=== PATIENT | male | born 1985 | race Caucasian/White ===

== ENCOUNTER 2018-01-05 11:15 | Emergency (ER) | payer OTHER ==
[2018-01-05 11:20] VITALS: RESP 18
[2018-01-05] MEDS ORDERED: SODIUM CHLORIDE 0.9% 500 ML 500 ML IV STA (11:40)
--- NOTE | 2018-01-05 11:47 | ED ---
General Adult HPI - General Chief complaint: Abdominal Pain Stated complaint: Abd pain Time Seen by Provider: 01/05/18 11:15 Source: patient, RN notes reviewed Mode of arrival: ambulatory Limitations: no limitations - History of Present Illness Initial comments: This is a 32-year-old male who presents emergency Department complaining of epigastric abdominal pain. Patient states it started yesterday morning has been intermittent since. Patient states he has about a 2 hour episode of abdominal pain and then resolved. Patient states so sharp in nature that he is doubled over when it occurs. Patient denies any radiation of the pain. Patient denies any nausea vomiting. Patient denies any diarrhea per patient denies any recent fever chills or cough. Patient denies any previous abdominal surgeries. Patient denies any similar symptoms prior to yesterday morning. Patient states at about 9:00 this morning he had a 2 hour episode which made him leave work on the way home he hit a pole because the pain was so bad per patient states currently he is pain-free. - Related Data Home Medications Medication Instructions Recorded Confirmed No Known Home Medications 01/05/18 01/05/18 Allergies Allergy/AdvReac Type Severity Reaction Status Date / Time Penicillins Allergy Rash/Hives Verified 01/05/18 11:47 Review of Systems ROS Statement: Those systems with pertinent positive or pertinent negative responses have been documented in the HPI. ROS Other: All systems not noted in ROS Statement are negative. Past Medical History Past Medical History: No Reported History History of Any Multi-Drug Resistant Organisms: None Reported Past Surgical History: Hernia Repair Past Psychological History: No Psychological Hx Reported Smoking Status: Never smoker Past Alcohol Use History: Occasional Past Drug Use History: None Reported General Exam - General Exam Comments Initial Comments: GENERAL: Patient is well-developed and well-nourished. Patient is nontoxic and well- hydrated and is in no acute distress. ENT: Neck is soft and supple. No significant lymphadenopathy is noted. Oropharynx is clear. Moist mucous membranes. Neck has full range of motion without eliciting any pain. EYES: The sclera were anicteric and conjunctiva were pink and moist. Extraocular movements were intact and pupils were equal round and reactive to light. Eyelids were unremarkable. PULMONARY: Unlabored respirations. Good breath sounds bilaterally. No audible rales rhonchi or wheezing was noted. CARDIOVASCULAR: There is a regular rate and rhythm without any murmurs gallops or rubs. ABDOMEN: Soft and nontender with normal bowel sounds. No palpable organomegaly was noted. There is no palpable pulsatile mass. SKIN: Skin is clear with no lesions or rashes and otherwise unremarkable. NEUROLOGIC: Patient is alert and oriented x3. Cranial nerves II through XII are grossly intact. Motor and sensory are also intact. Normal speech, volume and content. Symmetrical smile. MUSCULOSKELETAL: Normal extremities with adequate strength and full range of motion. No lower extremity swelling or edema. No calf tenderness. LYMPHATICS: No significant lymphadenopathy is noted PSYCHIATRIC: Normal psychiatric evaluation. Limitations: no limitations Course Vital Signs 01/05/18 01/05/18 11:17 12:30 Temperature 97.5 F L Pulse Rate 79 81 Respiratory 18 18 Rate Blood Pressure 129/80 121/71 O2 Sat by Pulse 99 96 Oximetry Medical Decision Making - Medical Decision Making KUB shows no acute abnormalities. Ultrasound gallbladder shows no acute normalities. I went into reevaluate the patient patient has had no pain while in the emergency department. Patient will follow-up the primary medical care doctor. - Lab Data Result diagrams: 01/05/18 11:39 01/05/18 11:39 Lab Results 01/05/18 01/05/18 Range/Units 11:39 11:39 WBC 6.7 (3.8-10.6) k/uL RBC 5.52 (4.30-5.90) m/uL Hgb 17.0 (13.0-17.5) gm/dL Hct 48.3 (39.0-53.0) % MCV 87.6 (80.0-100.0) fL MCH 30.9 (25.0-35.0) pg MCHC 35.2 (31.0-37.0) g/dL RDW 12.7 (11.5-15.5) % Plt Count 181 (150-450) k/uL Neutrophils % 64 % Lymphocytes % 29 % Monocytes % 5 % Eosinophils % 1 % Basophils % 0 % Neutrophils # 4.3 (1.3-7.7) k/uL Lymphocytes # 1.9 (1.0-4.8) k/uL Monocytes # 0.3 (0-1.0) k/uL Eosinophils # 0.1 (0-0.7) k/uL Basophils # 0.0 (0-0.2) k/uL Sodium 139 (137-145) mmol/L Potassium 4.3 (3.5-5.1) mmol/L Chloride 105 (98-107) mmol/L Carbon Dioxide 25 (22-30) mmol/L Anion Gap 9 mmol/L BUN 16 (9-20) mg/dL Creatinine 0.71 (0.66-1.25) mg/dL Est GFR (CKD-EPI)AfAm >90 (>60 ml/min/1.73 sqM) Est GFR (CKD-EPI)NonAf >90 (>60 ml/min/1.73 sqM) Glucose 116 H (74-99) mg/dL Calcium 10.1 (8.4-10.2) mg/dL Total Bilirubin 0.6 (0.2-1.3) mg/dL AST 25 (17-59) U/L ALT 32 (21-72) U/L Alkaline Phosphatase 65 (38-126) U/L Total Protein 6.9 (6.3-8.2) g/dL Albumin 4.3 (3.5-5.0) g/dL Amylase 63 (30-110) U/L Lipase 73 (23-300) U/L Disposition Clinical Impression: Abdominal pain Disposition: HOME SELF-CARE Instructions: Abdominal Pain (ED) Is patient prescribed a controlled substance at d/c from ED?: No Referrals: Jeane Orr MD [Primary Care Provider] - 1-2 days Time of Disposition: 13:32
[2018-01-05 11:59] LABS: Basophils % (A) 0 %; Eosinophils # (A) 0.1 k/uL (0-0.7); Eosinophils % (A) 1 %; HCT 48.3 % (39.0-53.0); Lymphocytes # (A) 1.9 k/uL (1.0-4.8); Lymphocytes % (A) 29 %; MCH 30.9 pg (25.0-35.0); MCHC 35.2 g/dL (31.0-37.0); MCV 87.6 fL (80.0-100.0); Mean Platelet Volume 7.5; Monocytes # (A) 0.3 k/uL (0-1.0); Monocytes % (A) 5 %; Neutrophils # (A) 4.3 k/uL (1.3-7.7); Neutrophils % (A) 64 %; Platelet Count 181 k/uL (150-450); RBC 5.52 m/uL (4.30-5.90); RDW 12.7 % (11.5-15.5); WBC 6.7 k/uL (3.8-10.6)
[2018-01-05 12:09] LABS: ALT 32 U/L (21-72); AST 25 U/L (17-59); Albumin 4.3 g/dL (3.5-5.0); Alkaline Phosphatase 65 U/L (38-126); Amylase 63 U/L (30-110); Anion Gap 9 mmol/L; Blood Urea Nitrogen 16 mg/dL (9-20); Calcium 10.1 mg/dL (8.4-10.2); Carbon Dioxide 25 mmol/L (22-30); Chloride 105 mmol/L (98-107); Glucose 116 mg/dL (74-99); Lipase 73 U/L (23-300); Potassium 4.3 mmol/L (3.5-5.1); Sodium 139 mmol/L (137-145); Total Bilirubin 0.6 mg/dL (0.2-1.3); Total Protein 6.9 g/dL (6.3-8.2)
--- NOTE | 2018-01-05 12:53 | XR ---
EXAMINATION TYPE: XR KUB DATE OF EXAM: 01/05/2018 CLINICAL DATA: 32-year-old male with abdominal pain, [facility] COMPARISON: None FINDINGS: Lung bases are clear. No evidence for free intraperitoneal air. No dilated small bowel or air-fluid levels. Scattered air and stool seen throughout the colon extendi ng distally into the rectum. Mild stool in the right side of the abdomen. No suspicious calcifications identified. IMPRESSION: No evidence of bowel obstruction or free intraperitoneal air.
--- NOTE | 2018-01-05 13:26 | US ---
EXAMINATION TYPE: US gallbladder DATE OF EXAM: 01/05/2018 COMPARISON: NONE CLINICAL HISTORY: Pain. abd pain x 1 day, patient ate 4 hrs prior EXAM MEASUREMENTS: Liver Length: 16.0 cm Gallbladder Wall: 0.3 cm CBD: not seen Right Kidney: 12.0 x 4.7 x 5.0 cm *extensive bowel gas limits exam, patient ate 4hrs prior Pancreas: limited views appear wnl Liver: intercostal views appear wnl Gallbladder: internal debris within and wall was borderline, maybe slightly contracted but no obviou s stone seen. Evidence for sonographic Espitia's sign: no CBD: unable to assess due to bowel gas obscuring window even after rolling patient Right Kidney: wnl IMPRESSION: 1. Ultrasound abdomen is visualized appears within normal limits. 2. Minimal debris within partially contracted gallbladder is not entirely excluded.
[2018-01-05 13:59] VITALS: BP 118/79; PULSE 79; TEMP 97.3
== END 2018-01-05 13:50 | disposition home or self-care (01) ==
LOC: EC 11:15
DX: R10.13 Epigastric pain (principal); Z88.0 Allergy status to penicillin
CPT/HCPCS: 36415; 74018; 76705; 80053; 82150; 83690; 85025; 96360; 96361; 99284

== ENCOUNTER → 2018-01-12 | Outpatient (CLI) | payer OTHER | END | disposition home or self-care (01) | LOC: LABWHC1 16:36 | PROVIDERS: ATTEND Internal Medicine | DX: R10.9 Unspecified abdominal pain (principal) | CPT/HCPCS: 36415; 86677 ==

== ENCOUNTER 2021-01-12 15:07 | Emergency (ER) | payer BC, OTHER ==
[2021-01-12 16:26] VITALS: TEMP 97.9
--- NOTE | 2021-01-12 16:29 | ED ---
General Adult HPI - General Source: patient, family, RN notes reviewed Mode of arrival: wheelchair Limitations: no limitations <Rc Gonzalez - Last Filed: 01/12/21 16:27> - General Source: patient, RN notes reviewed, old records reviewed <Sb Barrett - Last Filed: 01/12/21 20:05> - General Chief complaint: Extremity Injury, Lower Stated complaint: lt ankle injury - History of Present Illness Initial comments: 35-year-old male presents to the emergency room for a chief complaint of left ankle pain. Patient was getting out of his truck when he stepped in a hole and ankle rolled. He has a leather boot on and is unable to get it off. Denies any foot pain.Patient has no other complaints at this time including shortness of breath, chest pain, abdominal pain, nausea or vomiting, headache, or visual changes. (Rc Gonzalez) Patient is a 35-year-old male with no significant past medical history presents emergency Department after a fall. He stepped off his truck elbow with dizziness: Rolled his ankle. He was wearing leather boot and was having difficulty removing it. He has not and laboratory afterwards secondary to left ankle pain. Denies any other injuries or hitting his head. Denies any chest pain, abdominal pain, nausea, vomiting. States he is having severe pain over the left side of his ankle. He had difficulty walking with it. His no other acute complaints at this time. I evaluated the patient when he was placed in a room. (Sb Barrett) - Related Data Home Medications Medication Instructions Recorded Confirmed No Known Home Medications 01/05/18 01/05/18 Allergies Allergy/AdvReac Type Severity Reaction Status Date / Time Penicillins Allergy Rash/Hives Verified 01/12/21 16:26 Review of Systems ROS Other: All systems not noted in ROS Statement are negative. <Rc Gonzalez - Last Filed: 01/12/21 16:27> ROS Other: All systems not noted in ROS Statement are negative. <Sb Barrett - Last Filed: 01/12/21 20:05> ROS Statement: Those systems with pertinent positive or pertinent negative responses have been documented in the HPI. Review of Systems: CONST: Denies fever EYES: Denies blurry vision ENT: Denies nasal congestion C/V: Denies Chest pain RESP: Denies shortness of breath GI: Denies abdominal pain : Denies dysuria SKIN: Denies rash. MSK: Endorses left ankle pain. NEURO: Denies headache (Sb Barrett) Past Medical History Past Medical History: No Reported History History of Any Multi-Drug Resistant Organisms: None Reported Past Surgical History: Hernia Repair Past Psychological History: No Psychological Hx Reported Smoking Status: Never smoker Past Alcohol Use History: Occasional Past Drug Use History: None Reported <Rc Gonzalez - Last Filed: 01/12/21 16:27> General Exam Limitations: no limitations General appearance: alert, in no apparent distress Head exam: Present: atraumatic Eye exam: Present: normal appearance, PERRL, EOMI. Absent: scleral icterus, conjunctival injection ENT exam: Present: normal exam, mucous membranes moist Respiratory exam: Absent: respiratory distress Extremities exam: Present: other (Patient has on leather boot. Unable to remove secondary to pain) <Rc Gonzalez - Last Filed: 01/12/21 16:27> <Sb Barrett - Last Filed: 01/12/21 20:05> - General Exam Comments Initial Comments: General: Appears in mild distress secondary to left ankle pain. HEAD: Normal with no signs of head trauma. EYES: EOMI ENT: Hearing grossly intact RESPIRATORY: No increased work of breathing C/V: Regular rate and rhythm. Peripheral pulses are 2+ and intact throughout. Good capillary refill over the left toes. ABD: Abdomen is nondistended. EXT: Tenderness to palpation over the lateral malleolus of the left ankle. This radiates down into the left lateral foot. No tenderness to palpation over the foot. Intact peripheral pulses and sensation. Reduced range of motion secondary to pain over the lateral malleolus. SKIN: No rashes or lesions observed on exposed skin. NEURO: Alert and oriented 4. No focal sensory strength deficits. (Sb Barrett) Course Vital Signs 01/12/21 16:22 Temperature 97.9 F Pulse Rate 88 Respiratory 18 Rate Blood Pressure 136/86 O2 Sat by Pulse 99 Oximetry Medical Decision Making <Sb Barrett - Last Filed: 01/12/21 20:05> - Medical Decision Making Result patient's presentation and physical exam, I'm concerned for left ankle injury. X-ray was already obtained while the patient remained in triage. It was negative for acute fracture or subluxation, however was obtained with the patient's cowboy boot on and I believe that this did effectively of the image. We will repeat the x-ray and both my and the patient's request. He will be administered [place] as well as ibuprofen for pain management. He was in agreement this plan. Repeat x-ray revealed no acute fractures luxation. There was soft tissue swelling. I discussed results accepted the patient. He is likely experiencing a left ankle sprain. We discussed rest, ice, elevation. I'll provide follow-up information for orthopedic surgery. Patient will receive Daniel bandage as well as crutches here in the department. Patient was in agreement this plan. I instructed the patient to follow up with their PCP in the next 3 days. I provided contact information for follow up with Dr. Cuba orthopedic surgery. I explained that the patient should return to the emergency department if they experience any worsening symptoms. Strict return precautions were discussed with the patient. The patient expressed understanding of these instructions. I answered all questions that the patient had. The patient was discharged home in fair condition with their prescriptions and follow up information. (Sb Mchugh) Disposition <Rc Gonzalez - Last Filed: 01/12/21 16:27> Is patient prescribed a controlled substance at d/c from ED?: No <Sb Barrett - Last Filed: 01/12/21 20:05> Clinical Impression: Left ankle sprain Disposition: HOME SELF-CARE Condition: Fair Instructions (If sedation given, give patient instructions): Ankle Sprain (ED) Referrals: Jeane Orr MD [Primary Care Provider] - 1-2 days Norma Cuba DO [Doctor of Osteopathic Medicine] - 1-2 days
--- NOTE | 2021-01-12 16:43 | XR ---
EXAMINATION TYPE: XR ankle complete LT DATE OF EXAM: 01/12/2021 COMPARISON: NONE HISTORY: Ankle pain TECHNIQUE: 3 views FINDINGS: Ankle mortise is anatomic. I see no fracture nor dislocation. Joint spaces are fairly john l. There is soft tissue swelling over the lateral malleolus. IMPRESSION: Soft tissue swelling. No fracture.
[2021-01-12] MEDS ORDERED: IBUPROFEN 600 MG TAB PO STA (18:46)
--- NOTE | 2021-01-12 19:43 | XR ---
EXAMINATION TYPE: XR ankle complete LT DATE OF EXAM: 01/12/2021 COMPARISON: Today HISTORY: Pain TECHNIQUE: 3 views FINDINGS: Ankle mortise is anatomic. There is some soft tissue swelling around the ankle. I see no fr acture. Subtalar joint is intact. There is small plantar calcaneal spur. IMPRESSION: Soft tissue swelling. No fracture. No change.
[2021-01-12] MEDS ORDERED: HYDROcodone/APAP 5-325MG 1 EACH TAB PO STA (19:56)
[2021-01-12 20:29] VITALS: BP 143/100; PULSE 80; RESP 16
== END 2021-01-12 21:35 | disposition home or self-care (01) ==
LOC: EC 15:07
DX: S93.402A Sprain of unspecified ligament of left ankle, initial encounter (principal); Z88.0 Allergy status to penicillin; W18.42XA Slipping, tripping and stumbling without falling due to stepping into hole or opening, initial encounter
CPT/HCPCS: 99284

== ENCOUNTER 2021-08-30 13:42 | Emergency (ER) | payer BC ==
[2021-08-30 13:48] VITALS: TEMP 98.6
[2021-08-30] MEDS ORDERED: methylPREDNISolone SOD SUCCI 125 MG/2 ML VIAL IM ONE (14:18)
[2021-08-30] MEDS ORDERED: FAMOTIDINE 20 MG TAB PO STA (14:18)
--- NOTE | 2021-08-30 14:57 | ED ---
General Adult HPI - General Chief complaint: Skin/Abscess/Foreign Body Stated complaint: Bee Sting/EPI used Time Seen by Provider: 08/30/21 14:11 Source: patient Mode of arrival: ambulatory Limitations: no limitations - History of Present Illness Initial comments: Patient is a 36-year-old male who presents for allergic reaction to bee sting. 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 Patient states he was stung 3 times approximately 1:30 PM, two stings on the left hand and one sting on the right. Patient immediately used his EpiPen. Patient also took 2 Benadryl. Patient states he feels well now he is just worried he will have a reaction. He denies rash, throat swelling or irritation and trouble breathing. - Related Data Previous Rx's Medication Instructions Recorded EPINEPHrine (Auto Inject) [Epipen] 0.3 mg IM ONCE PRN #3 each 08/30/21 predniSONE 50 mg PO DAILY #5 tab 08/30/21 Allergies Allergy/AdvReac Type Severity Reaction Status Date / Time bee venom protein (honey bee) Allergy Unknown Verified 08/30/21 13:48 Penicillins Allergy Rash/Hives Verified 01/12/21 16:26 Review of Systems ROS Statement: Those systems with pertinent positive or pertinent negative responses have been documented in the HPI. ROS Other: All systems not noted in ROS Statement are negative. Past Medical History Past Medical History: No Reported History History of Any Multi-Drug Resistant Organisms: None Reported Past Surgical History: Hernia Repair Past Psychological History: No Psychological Hx Reported Smoking Status: Never smoker Past Alcohol Use History: Occasional Past Drug Use History: None Reported General Exam Limitations: no limitations General appearance: alert, in no apparent distress Head exam: Present: atraumatic, normocephalic, normal inspection Eye exam: Present: normal appearance, PERRL, EOMI. Absent: scleral icterus, conjunctival injection, periorbital swelling Neck exam: Present: normal inspection. Absent: tenderness, meningismus, lymphadenopathy Respiratory exam: Present: normal lung sounds bilaterally. Absent: respiratory distress, wheezes, rales, rhonchi, stridor Cardiovascular Exam: Present: regular rate, normal rhythm, normal heart sounds. Absent: systolic murmur, diastolic murmur, rubs, gallop, clicks Neurological exam: Present: alert, oriented X3, CN II-XII intact Psychiatric exam: Present: normal affect, normal mood Skin exam: Present: warm, dry, intact, normal color. Absent: rash Course Vital Signs 08/30/21 08/30/21 13:46 15:59 Temperature 98.6 F Pulse Rate 74 80 Respiratory 14 18 Rate Blood Pressure 135/90 122/75 O2 Sat by Pulse 98 98 Oximetry Medical Decision Making - Medical Decision Making This is a 36-year-old male who presents for evaluation of bee stings. Thorough history and examination were performed. Patient is well-appearing. Vital stable. He is not experiencing those swelling or difficulty breathing. There are no signs of respiratory distress or wheezing. Patient already uses EpiPen and took Benadryl. I will give him Solu-Medrol and Pepcid. Medication given. Patient observed in the emergency department for 2 and half hours. His vitals remained stable and patient continued to feel well. Patient will be discharged with strict return parameters. I will send him home with prednisone and more EpiPen's. Patient to follow-up with his primary care provider. He verbalizes understanding and is agreeable to this plan. Dr. Davidson is my attending. Disposition Clinical Impression: Bee sting allergy, Bee sting Disposition: HOME SELF-CARE Condition: Good Instructions (If sedation given, give patient instructions): Anaphylaxis (ED) Additional Instructions: Take medication as directed. You may also take Benadryl for any rash or itching. Follow-up with primary care provider in one to 2 days. Return to the emergency department experience new, concerning, or worsening symptoms. Prescriptions: EPINEPHrine (Auto Inject) [Epipen] 0.3 mg IM ONCE PRN #3 each PRN Reason: Anaphylaxis predniSONE 50 mg PO DAILY #5 tab Is patient prescribed a controlled substance at d/c from ED?: No Referrals: Jeane Orr MD [Primary Care Provider] - 1-2 days Time of Disposition: 16:03
[2021-08-30 16:01] VITALS: BP 122/75; PULSE 80; RESP 18
== END 2021-08-30 16:48 | disposition home or self-care (01) ==
LOC: EC 13:42
DX: T78.49XA Other allergy, initial encounter (principal); Z91.030 Bee allergy status; Z88.0 Allergy status to penicillin
CPT/HCPCS: 99282; J2930

== ENCOUNTER 2021-12-05 08:48 | Emergency (ER) | payer BC ==
[2021-12-05] MEDS ORDERED: DEXAMETHASONE SOD PHOSPHATE 10 MG/ML 1 ML VIAL IVP STA (10:35)
[2021-12-05] MEDS ORDERED: KETOROLAC 15 MG/ML 1 ML VIAL IVP STA (10:35)
--- NOTE | 2021-12-05 10:40 | ED ---
Weakness HPI - General Chief complaint: Neuro Symptoms/Deficit Stated complaint: lt sided facial numbness Time Seen by Provider: 12/05/21 10:27 Source: patient, RN notes reviewed Mode of arrival: ambulatory Limitations: no limitations - History of Present Illness Initial comments: This is a 36-year-old male who presents to the emergency department for left arm weakness and left-sided facial numbness. States that for the last 2-3 weeks, he has had weakness in the left arm, and states that he is having difficulty lifting objects. Earlier today, he experienced numbness in the left side of his face, and felt like it was drooping when he was looking in the mirror. When he went to work, his coworkers instructed him to come to the emergency department for evaluation. Denies any chest pain or shortness of breath. He has no history of cardiac or neurological issues. He has been seeing a chiropractor for the last several weeks due to pain in the right lower back and right leg. This is been attributed to his sciatic nerve. He has not had any treatment other than seeing the chiropractor. Denies any fevers, chills, sore throat, cough, dyspnea, chest pain, palpitations, abdominal pain, nausea, vomiting, diarrhea, or headaches. MD Complaint: numbness Location: LUE, face - Related Data Previous Rx's Medication Instructions Recorded EPINEPHrine (Auto Inject) [Epipen] 0.3 mg IM ONCE PRN #3 each 08/30/21 predniSONE 50 mg PO DAILY 5 Days #5 tab 12/05/21 Allergies Allergy/AdvReac Type Severity Reaction Status Date / Time bee venom protein (honey bee) Allergy Anaphylaxis Verified 12/05/21 11:53 Penicillins Allergy Swelling Verified 12/05/21 11:53 all over Review of Systems ROS Statement: Those systems with pertinent positive or pertinent negative responses have been documented in the HPI. ROS Other: All systems not noted in ROS Statement are negative. Past Medical History Past Medical History: No Reported History History of Any Multi-Drug Resistant Organisms: None Reported Past Surgical History: Hernia Repair Past Psychological History: No Psychological Hx Reported Smoking Status: Never smoker Past Alcohol Use History: Occasional Past Drug Use History: None Reported General Exam Limitations: no limitations General appearance: alert, in no apparent distress Head exam: Present: atraumatic, normocephalic, normal inspection Eye exam: Present: normal appearance, PERRL, EOMI. Absent: scleral icterus, conjunctival injection, periorbital swelling ENT exam: Present: normal exam, mucous membranes moist, TM's normal bilaterally, normal external ear exam Neck exam: Present: normal inspection. Absent: tenderness, meningismus, lymphadenopathy Respiratory exam: Present: normal lung sounds bilaterally. Absent: respiratory distress, wheezes, rales, rhonchi, stridor Cardiovascular Exam: Present: regular rate, normal rhythm, normal heart sounds. Absent: systolic murmur, diastolic murmur, rubs, gallop, clicks Extremities exam: Present: other (Full range of motion of the upper extremities bilaterally. Grain Combine Driver strength is 5 out of 5 bilaterally. 2+ radial pulses bi laterally.) Neurological exam: Present: alert, oriented X3, CN II-XII intact Psychiatric exam: Present: normal affect, normal mood Skin exam: Present: warm, dry, intact, normal color. Absent: rash Course Vital Signs 12/05/21 12/05/21 12/05/21 08:50 11:18 12:51 Temperature 97.9 F 98.8 F Pulse Rate 71 56 L 78 Respiratory 20 16 18 Rate Blood Pressure 149/90 131/85 130/77 O2 Sat by Pulse 97 98 98 Oximetry EKG Findings - EKG Comments: EKG Findings:: Sinus rhythm. Normal axis. Ventricular rate 66 bpm, PA interval 152 ms, QRS duration 86 ms, QTC 383 ms. Medical Decision Making - Medical Decision Making This is a 36-year-old male who presents to the emergency department for left sided numbness and right leg pain. He has no focal deficits on physical examination. Lab work obtained which was nonactionable. X-ray of the left arm, lumbar spine, and right femur were obtained. These revealed no acute findings, however it did identify degenerative changes in the lumbar spine. Computed tomography scan of the brain was obtained as well due to the patient's symptoms, revealing no acute intracranial abnormalities. Advised the patient that at this time his workup is not revealing a cause for his symptoms. It is very possible that he is experiencing a sciatica. He was given a dose of Decadron in the emergency department and a 5 day course of prednisone was provided to treat the possible sciatica. Advised he discussed physical therapy with his primary care provider and additional workup as necessary. Return precautions reviewed in depth, the patient is instructed to return to the emergency department with any new, worsening, or concerning symptoms. Patient verbalized understanding. This case was discussed in detail with the attending ED physician. Presentation, findings, and treatment plan discussed in detail as well. - Lab Data Result diagrams: 12/05/21 10:40 12/05/21 10:40 Lab Results 12/05/21 12/05/21 12/05/21 Range/Units 10:40 10:40 10:40 WBC 7.3 (3.8-10.6) k/uL RBC 5.62 (4.30-5.90) m/uL Hgb 17.3 (13.0-17.5) gm/dL Hct 49.4 (39.0-53.0) % MCV 88.0 (80.0-100.0) fL MCH 30.8 (25.0-35.0) pg MCHC 35.0 (31.0-37.0) g/dL RDW 12.7 (11.5-15.5) % Plt Count 196 (150-450) k/uL MPV 9.3 Neutrophils % 63 % Lymphocytes % 28 % Monocytes % 6 % Eosinophils % 1 % Basophils % 1 % Neutrophils # 4.6 (1.3-7.7) k/uL Lymphocytes # 2.1 (1.0-4.8) k/uL Monocytes # 0.4 (0-1.0) k/uL Eosinophils # 0.1 (0-0.7) k/uL Basophils # 0.1 (0-0.2) k/uL PT 10.3 (9.0-12.0) sec INR 0.9 (<1.2) APTT 26.9 (22.0-30.0) sec Sodium (137-145) mmol/L Potassium (3.5-5.1) mmol/L Chloride (98-107) mmol/L Carbon Dioxide (22-30) mmol/L Anion Gap mmol/L BUN (9-20) mg/dL Creatinine (0.66-1.25) mg/dL Est GFR (CKD-EPI)AfAm (>60 ml/min/1.73 sqM) Est GFR (CKD-EPI)NonAf (>60 ml/min/1.73 sqM) Glucose (74-99) mg/dL Calcium (8.4-10.2) mg/dL Total Bilirubin (0.2-1.3) mg/dL AST (17-59) U/L ALT (4-49) U/L Alkaline Phosphatase (38-126) U/L Troponin I (0.000-0.034) ng/mL Total Protein (6.3-8.2) g/dL Albumin (3.5-5.0) g/dL Urine Color Colorless Urine Appearance Clear (Clear) Urine pH 7.0 (5.0-8.0) Ur Specific Welch 1.005 (1.001-1.035) Urine Protein Negative (Negative) Urine Glucose (UA) Negative (Negative) Urine Ketones Negative (Negative) Urine Blood Negative (Negative) Urine Nitrite Negative (Negative) Urine Bilirubin Negative (Negative) Urine Urobilinogen <2.0 (<2.0) mg/dL Ur Leukocyte Esterase Negative (Negative) Urine Opiates Screen Not Detected (NotDetected) Ur Oxycodone Screen Not Detected (NotDetected) Urine Methadone Screen Not Detected (NotDetected) Ur Propoxyphene Screen Not Detected (NotDetected) Ur Barbiturates Screen Not Detected (NotDetected) U Tricyclic Antidepress Not Detected (NotDetected) Ur Phencyclidine Scrn Not Detected (NotDetected) Ur Amphetamines Screen Not Detected (NotDetected) U Methamphetamines Scrn Not Detected (NotDetected) U Benzodiazepines Scrn Not Detected (NotDetected) Urine Cocaine Screen Not Detected (NotDetected) U Marijuana (THC) Screen Not Detected (NotDetected) 12/05/21 12/05/21 Range/Units 10:40 10:40 WBC (3.8-10.6) k/uL RBC (4.30-5.90) m/uL Hgb (13.0-17.5) gm/dL Hct (39.0-53.0) % MCV (80.0-100.0) fL MCH (25.0-35.0) pg MCHC (31.0-37.0) g/dL RDW (11.5-15.5) % Plt Count (150-450) k/uL MPV Neutrophils % % Lymphocytes % % Monocytes % % Eosinophils % % Basophils % % Neutrophils # (1.3-7.7) k/uL Lymphocytes # (1.0-4.8) k/uL Monocytes # (0-1.0) k/uL Eosinophils # (0-0.7) k/uL Basophils # (0-0.2) k/uL PT (9.0-12.0) sec INR (<1.2) APTT (22.0-30.0) sec Sodium 137 (137-145) mmol/L Potassium 4.8 (3.5-5.1) mmol/L Chloride 102 (98-107) mmol/L Carbon Dioxide 21 L (22-30) mmol/L Anion Gap 14 mmol/L BUN 13 (9-20) mg/dL Creatinine 0.71 (0.66-1.25) mg/dL Est GFR (CKD-EPI)AfAm >90 (>60 ml/min/1.73 sqM) Est GFR (CKD-EPI)NonAf >90 (>60 ml/min/1.73 sqM) Glucose 86 (74-99) mg/dL Calcium 9.5 (8.4-10.2) mg/dL Total Bilirubin 0.8 (0.2-1.3) mg/dL AST 40 (17-59) U/L ALT 50 H (4-49) U/L Alkaline Phosphatase 76 (38-126) U/L Troponin I <0.012 (0.000-0.034) ng/mL Total Protein 7.3 (6.3-8.2) g/dL Albumin 4.7 (3.5-5.0) g/dL Urine Color Urine Appearance (Clear) Urine pH (5.0-8.0) Ur Specific Welch (1.001-1.035) Urine Protein (Negative) Urine Glucose (UA) (Negative) Urine Ketones (Negative) Urine Blood (Negative) Urine Nitrite (Negative) Urine Bilirubin (Negative) Urine Urobilinogen (<2.0) mg/dL Ur Leukocyte Esterase (Negative) Urine Opiates Screen (NotDetected) Ur Oxycodone Screen (NotDetected) Urine Methadone Screen (NotDetected) Ur Propoxyphene Screen (NotDetected) Ur Barbiturates Screen (NotDetected) U Tricyclic Antidepress (NotDetected) Ur Phencyclidine Scrn (NotDetected) Ur Amphetamines Screen (NotDetected) U Methamphetamines Scrn (NotDetected) U Benzodiazepines Scrn (NotDetected) Urine Cocaine Screen (NotDetected) U Marijuana (THC) Screen (NotDetected) - Radiology Data Radiology results: report reviewed, image reviewed Disposition Clinical Impression: Lumbar radiculopathy, right Disposition: HOME SELF-CARE Instructions (If sedation given, give patient instructions): Lumbar Radiculopathy (ED) Additional Instructions: Return to the emergency department with any new, worsening, or concerning symptoms. Take the prednisone daily for 5 days. Discuss physical therapy with your primary care provider. Follow up with your primary care provider in 1-2 days. Prescriptions: predniSONE 50 mg PO DAILY 5 Days #5 tab Is patient prescribed a controlled substance at d/c from ED?: No Referrals: Jeane Orr MD [Primary Care Provider] - 1-2 days
[2021-12-05 10:53] LABS: Appearance,Urine Clear (Clear); Basophils # (A) 0.1 k/uL (0-0.2); Basophils % (A) 1 %; Bilirubin,Urine Negative (Negative); Blood,Urine Negative (Negative); Color,Urine Colorless; Eosinophils # (A) 0.1 k/uL (0-0.7); Eosinophils % (A) 1 %; Glucose,Urine (UA) Negative (Negative); HCT 49.4 % (39.0-53.0); HGB 17.3 gm/dL (13.0-17.5); Ketones,Urine Negative (Negative); Leukocyte Esterase,Urine Negative (Negative); Lymphocytes # (A) 2.1 k/uL (1.0-4.8); Lymphocytes % (A) 28 %; MCH 30.8 pg (25.0-35.0); Mean Platelet Volume 9.3; Monocytes # (A) 0.4 k/uL (0-1.0); Monocytes % (A) 6 %; Neutrophils # (A) 4.6 k/uL (1.3-7.7); Neutrophils % (A) 63 %; Nitrite,Urine Negative (Negative); Platelet Count 196 k/uL (150-450); Protein,Urine Negative (Negative); RBC 5.62 m/uL (4.30-5.90); RDW 12.7 % (11.5-15.5); Specific Gravity,Urine 1.005 (1.001-1.035); Urobilinogen,Urine <2.0 mg/dL (<2.0); WBC 7.3 k/uL (3.8-10.6)
[2021-12-05 11:07] LABS: ALT 50 U/L (4-49); AST 40 U/L (17-59); African American GFR (CKD) >90 (>60 ml/min/1.73 sqM); Albumin 4.7 g/dL (3.5-5.0); Alkaline Phosphatase 76 U/L (38-126); Anion Gap 14 mmol/L; Blood Urea Nitrogen 13 mg/dL (9-20); Calcium 9.5 mg/dL (8.4-10.2); Carbon Dioxide 21 mmol/L (22-30); Chloride 102 mmol/L (98-107); Glucose 86 mg/dL (74-99); Non-African American GFR(CKD) >90 (>60 ml/min/1.73 sqM); Sodium 137 mmol/L (137-145); Total Bilirubin 0.8 mg/dL (0.2-1.3); Total Protein 7.3 g/dL (6.3-8.2)
[2021-12-05 11:09] LABS: Amphetamine Screen,Urine Not Detected (NotDetected); Barbiturate Screen,Urine Not Detected (NotDetected); Benzodiazepines Screen,Urine Not Detected (NotDetected); Cocaine Screen,Urine Not Detected (NotDetected); Methadone Screen, Urine Not Detected (NotDetected); Opiate Screen,Urine Not Detected (NotDetected); Oxycodone Screen, Urine Not Detected (NotDetected); Phencyclidine Screen,Urine Not Detected (NotDetected); Tricyclic Antidepressant,Urine Not Detected (NotDetected); Urn Cannabinoid Scrn Not Detected (NotDetected)
[2021-12-05 11:15] LABS: INR 0.9 (<1.2); Partial Thromboplastin Time 26.9 sec (22.0-30.0); Prothrombin Time 10.3 sec (9.0-12.0)
[2021-12-05 11:23] LABS: Potassium 4.8 mmol/L (3.5-5.1)
--- NOTE | 2021-12-05 11:25 | XR ---
EXAMINATION TYPE: XR lumbar spine 3V DATE OF EXAM: 12/05/2021 Comparison: None Clinical History: 36-year-old male with back pain Findings: 5 lumbar type vertebral bodies. Small T12 ribs. Straightening of the normal lumbar lordosis. Vertebra l body heights are preserved and alignment is maintained. Mild degenerative disc disease noted at the lower thoracic spine and thoracic lumbar junction with endplate spondylosis. Impression: Mild degenerative disc disease lower thoracic spine and thoracolumbar junction. No vertebral compress ion collapse or malalignment.
--- NOTE | 2021-12-05 11:36 | XR ---
EXAMINATION TYPE: XR humerus 2 views LT, XR femur 2 views RT DATE OF EXAM: 12/05/2021 COMPARISON: NONE HISTORY: 36-year-old male arm pain and right leg pain. FINDINGS: Left humerus: No acute fracture. No periostitis or osteolysis. No elbow joint effusion. Both shoulder and elbow art iculations appear grossly intact. Right femur: Mild marginal spurring at the right hip. Hip joint spaces relatively maintained. No periostitis or o steolysis. No knee joint effusion. No acute fracture. IMPRESSION: Left humerus and right femur without acute osseous abnormality seen. There is early degenerative spur ring noted at the right hip.
--- NOTE | 2021-12-05 12:15 | CT ---
EXAMINATION TYPE: CT brain wo con DATE OF EXAM: 12/05/2021 COMPARISON: 11/06/2012 HISTORY: 36-year-old male Left facial and arm numbness TECHNIQUE: Examination was done in axial plane without intravenous contrast. Coronal and sagittal r econstructions performed. CT DLP: 1059.4 mGycm Automated exposure control for dose reduction was used. FINDINGS: There is no evidence of acute intracranial hemorrhage, acute ischemic changes, mass, mass-effect, or extra-axial fluid collection. There is no effacement of cerebral sulci or basal subarachnoid cister ns. There is no hydrocephalus. There is no midline shift. Spring-white matter distinction is preserv ed. Rightward nasal septal deviation. Paranasal sinuses and mastoid air cells are well pneumatized. Orbit s and globes are intact. IMPRESSION: No acute intracranial abnormality seen.
[2021-12-05 12:51] VITALS: BP 130/77; PULSE 78; RESP 18; TEMP 98.8
== END 2021-12-05 12:52 | disposition home or self-care (01) ==
LOC: EC 08:48
DX: M54.16 Radiculopathy, lumbar region (principal); Z88.0 Allergy status to penicillin; Z91.030 Bee allergy status
CPT/HCPCS: 99285; 96374; 96375; 36415; 80053; 84484; 85025; 85610; 85730; 81003; 80306; 72100; 73552; 73060; 70450; J1100; J1885

== ENCOUNTER 2022-09-28 19:34 | Emergency (ER) | payer BC ==
[2022-09-28 19:49] VITALS: RESP 18; TEMP 97.9
[2022-09-28] MEDS ORDERED: FAMOTIDINE 20 MG TAB PO STA (20:04)
[2022-09-28] MEDS ORDERED: methylPREDNISolone SOD SUCCI 125 MG/2 ML VIAL IM ONE (20:04)
--- NOTE | 2022-09-28 22:07 | ED ---
Allergic Reaction HPI - General Chief complaint: Allergic Reaction Stated complaint: Allergic Reaction Time Seen by Provider: 09/28/22 20:04 Source: patient Mode of arrival: ambulatory Limitations: no limitations - History of Present Illness Initial Comments: Patient is a 37-year-old male who presents to the emergency department for bee sting. Patient was stung 3 times on his right thigh and left calf about 2 hours prior to arrival. 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 He uses EpiPen and took Benadryl. He is currently asymptomatic. Denies tongue and throat swelling, chest pain, shortness of breath. - Related Data Previous Rx's Medication Instructions Recorded EPINEPHrine (Auto Inject) [Epipen] 0.3 mg IM ONCE PRN #3 each 08/30/21 predniSONE 50 mg PO DAILY 5 Days #5 tab 12/05/21 EPINEPHrine (Auto Inject) [Epipen] 0.3 mg IM ONCE PRN #2 each 09/28/22 predniSONE 50 mg PO DAILY #5 tab 09/28/22 Allergies Allergy/AdvReac Type Severity Reaction Status Date / Time bee venom protein (honey bee) Allergy Anaphylaxis Verified 09/28/22 19:44 Penicillins Allergy Swelling Verified 09/28/22 19:44 all over Review of Systems ROS Statement: Those systems with pertinent positive or pertinent negative responses have been documented in the HPI. ROS Other: All systems not noted in ROS Statement are negative. Past Medical History Past Medical History: No Reported History History of Any Multi-Drug Resistant Organisms: None Reported Past Surgical History: Hernia Repair Past Psychological History: No Psychological Hx Reported Smoking Status: Never smoker Past Alcohol Use History: Occasional Past Drug Use History: None Reported General Exam Limitations: no limitations General appearance: alert ENT exam: Present: normal oropharynx Neck exam: Present: normal inspection. Absent: tenderness, meningismus, lymphadenopathy Respiratory exam: Present: normal lung sounds bilaterally. Absent: respiratory distress, wheezes, rales, rhonchi, stridor Cardiovascular Exam: Present: regular rate, normal rhythm, normal heart sounds. Absent: systolic murmur, diastolic murmur, rubs, gallop, clicks Neurological exam: Present: alert Psychiatric exam: Present: normal affect, normal mood Skin exam: Present: warm, dry, intact, normal color, other (2 bee stings on the right thigh, one on left calf, minimal erythema and mild urticaria). Absent: rash Course Vital Signs 09/28/22 09/28/22 19:45 22:24 Temperature 97.9 F Pulse Rate 69 58 L Respiratory 18 18 Rate Blood Pressure 143/88 123/76 O2 Sat by Pulse 98 97 Oximetry Medical Decision Making - Medical Decision Making Was pt. sent in by a medical professional or institution (JESÚS Ford, RESEARCH ASSOCIATE PROFESSOR, urgent care, hospital, or intermediate...) When possible be specific @ -No Did you speak to anyone other than the patient for history (EMS, parent, family, police, friend...)? What history was obtained from this source @ -No Did you review nursing and triage notes (agree or disagree)? Why? @ -I reviewed and agree with nursing and triage notes Were old charts reviewed (outside hosp., previous admission, EMS record, old EKG, old radiological studies, urgent care reports/EKG's, intermediate records)? Report findings @ -No old charts were reviewed Differential Diagnosis (chest pain, altered mental status, abdominal pain women, abdominal pain men, vaginal bleeding, weakness, fever, dyspnea, syncope, headache, dizziness, GI bleed, back pain, seizure, CVA, palpatations, mental health)? @ Anaphylaxis, ALLERGIC reaction EKG interpreted by me (3pts min.). @ -As above X-rays interpreted by me (1pt min.). @ -None done CT interpreted by me (1pt min.). @ -None done U/S interpreted by me (1pt. min.). @ -[None done] What testing was considered but not performed or refused? (CT, X-rays, U/S, labs)? Why? @ -[None] What meds were considered but not given or refused? Why? @ -[None] Did you discuss the management of the patient with other professionals (professionals i.e. JESÚS Ford, RESEARCH ASSOCIATE PROFESSOR, lab, RT, psych nurse, elementary school social worker, translational specialist, teacher, traffic officer, director of casework)? Give summary @ -[No] Was smoking cessation discussed for >3mins.? @ -[No] Was critical care preformed (if so, how long)? @ -[No] Were there social determinants of health that impacted care today? How? (Homelessness, low income, unemployed, alcoholism, drug addiction, transportation, low edu. Level, literacy, decrease access to med. care, residential, rehab)? @ -[No] Was there de-escalation of care discussed even if they declined (Discuss DNR or withdrawal of care, Hospice)? DNR status @ -[No] What co-morbidities impacted this encounter? (DM, HTN, Smoking, COPD, CAD, Cancer, CVA, ARF, Chemo, Hep., AIDS, mental health diagnosis, sleep apnea, morbid obesity)? @ -[None] Was patient admitted / discharged? Hospital course, mention meds given and route, prescriptions, significant lab abnormalities, going to OR and other pertinent info. @ -Patient presenting after bee stings. He is well appearing, asymptomatic, no airway involvement. No hypoxia or wheezing. Patient already use EpiPen and Benadryl. He was given Solu-Medrol, Pepcid. He was observed closely in the emergency department and continued to feel well. He is discharged in stable medical condition. He is discharged with EpiPen and prednisone course due to anaphylaxis ALLERGY to bee stings. He will continue Benadryl. Undiagnosed new problem with uncertain prognosis? @ -[No] Drug Therapy requiring intensive monitoring for toxicity (Heparin, Nitro, Insulin, Cardizem)? @ -[No] Were any procedures done? @ -[No] Diagnosis/symptom? @ -allergic reaction to insect sting Acute, or Chronic, or Acute on Chronic? @ -Acute Uncomplicated (without systemic symptoms) or Complicated (systemic symptoms)? @ -uncomplicated Side effects of treatment? @ -[No] Exacerbation, Progression, or Severe Exacerbation? @ -[No] Poses a threat to life or bodily function? How? (Chest pain, [place], SD, pneumonia, PE, COPD, DKA, ARF, appy, cholecystitis, CVA, Diverticulitis, Homicidal, Suicidal, threat to staff... and all critical care pts) @ -[No] Dr. Aggarwal is my attending Disposition Clinical Impression: Allergic reaction to insect sting Disposition: HOME SELF-CARE Condition: Good Instructions (If sedation given, give patient instructions): Anaphylaxis (ED) Additional Instructions: Take medication as directed. Continue Benadryl. Please follow-up with your primary care provider in 1-2 days. Return to the emergency department if you experience new, concerning, or worsening symptoms. Prescriptions: EPINEPHrine (Auto Inject) [Epipen] 0.3 mg IM ONCE PRN #2 each PRN Reason: Anaphylaxis predniSONE 50 mg PO DAILY #5 tab Is patient prescribed a controlled substance at d/c from ED?: No Referrals: Jeane Orr MD [Primary Care Provider] - 1-2 days
[2022-09-28 22:27] VITALS: BP 123/76; PULSE 58
== END 2022-09-28 22:33 | disposition home or self-care (01) ==
LOC: EC 19:34
DX: T63.481A Toxic effect of venom of other arthropod, accidental (unintentional), initial encounter (principal); Z88.0 Allergy status to penicillin; Z91.030 Bee allergy status
CPT/HCPCS: 99283; 96372; J2930

== ENCOUNTER → 2023-07-20 | Outpatient (CLI) | payer OTHER ==
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
== END | disposition home or self-care (01) ==
LOC: RADXRMAIN 16:12
PROVIDERS: ATTEND Emergency Medicine
DX: S33.5XXA Sprain of ligaments of lumbar spine, initial encounter (principal); S73.101A Unspecified sprain of right hip, initial encounter; S43.402A Unspecified sprain of left shoulder joint, initial encounter; M19.012 Primary osteoarthritis, left shoulder; M19.011 Primary osteoarthritis, right shoulder
CPT/HCPCS: 72100; 73502

== ENCOUNTER → 2024-01-22 | Outpatient (CLI) | payer BC ==
[2024-01-23 07:20] LABS: Basophils # (A) 0.06 X 10*3/uL (0.00-0.10); Basophils % (A) 0.8 %; Eosinophils # (A) 0.09 X 10*3/uL (0.04-0.35); Eosinophils % (A) 1.2 %; HCT 52.5 % (39.6-50.0); HGB 17.2 g/dL (13.0-17.0); Lymphocytes # (A) 2.42 X 10*3/uL (0.90-5.00); Lymphocytes % (A) 32.9 %; MCH 29.9 pg (27.0-32.0); MCHC 32.8 g/dL (32.0-37.0); MCV 91.3 FL (80.0-97.0); Mean Platelet Volume 11.4 FL (9.5-12.2); Monocytes # (A) 0.62 X 10*3/uL (0.20-1.00); Monocytes % (A) 8.4 %; NRBC Per 100 WBC 0 X 10*3/uL (0.00-0.01); Neutrophils # (A) 4.14 X 10*3/uL (1.80-7.70); Neutrophils % (A) 56.3 %; Platelet Count 224 X 10*3/uL (140-440); RBC 5.75 X 10*6/uL (4.40-5.60); RDW 12.5 % (11.5-14.5); WBC 7.36 X 10*3/uL (4.50-10.00)
[2024-01-23 11:20] LABS: BUN/Creat Ratio 19.14 Ratio (12.00-20.00); Blood Urea Nitrogen 13.4 mg/dL (9.0-27.0); Calcium 9.5 mg/dL (8.7-10.3); Carbon Dioxide 26.3 mmol/L (21.6-31.8); Chloride 104 mmol/L (96-109); Chol/HDL Ratio 4.65 Ratio; Glucose 91 mg/dL (70-110); LDL Cholesterol,Calculated 173.7 mg/dL (0.0-131.0); Potassium 4.9 mmol/L (3.5-5.5); Sodium 140 mmol/L (135-145); T4, Free (Free Thyroxine) 1.22 ng/dL (0.80-1.80)
== END | disposition home or self-care (01) ==
LOC: LABWHC1 11:28
PROVIDERS: ATTEND Nurse Practitioner Family
DX: E66.9 Obesity, unspecified (principal); Z68.38 Body mass index [BMI] 38.0-38.9, adult
CPT/HCPCS: 36415; 80048; 80061; 82306; 84439; 84443; 85025

== ENCOUNTER → 2024-02-23 | Outpatient (CLI) | payer BC ==
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
== END | disposition home or self-care (01) ==
LOC: RADXRMAIN 17:00
PROVIDERS: ATTEND Family Medicine
DX: R06.09 Other forms of dyspnea (principal)
CPT/HCPCS: 71046

== ENCOUNTER → 2024-04-14 | Outpatient (CLI) | payer BC ==
--- NOTE | 2024-04-14 17:39 | CA ---
Transthoracic Echo Report Name: Carlos Kim Age: 39 Gender: M : 1985 Exam Date: 04/14/2024 16:19 Exam Location: [place] Echo Ht (in): 61.5 Wt (lb): 220 Ordering Physician: Nehemias Hicks DO Attending/Referring Phys: Derick Birmingham [employer] Supervisor Janeth Bang RDCS Procedure CPT: Indications: R06.09 Other forms of dyspnea Cardiac Hx: Technical Quality: Good Contrast 1: Total Dose (mL): Contrast 2: Total Dose (mL): MEASUREMENTS (Male / Female) Normal Values 2D ECHO LV Diastolic Diameter PLAX 4.4 cm 4.2 - 5.9 / 3.9 - 5.3 cm LV Systolic Diameter PLAX 2.6 cm IVS Diastolic Thickness 1.1 cm 0.6 - 1.0 / 0.6 - 0.9 cm LVPW Diastolic Thickness 1.1 cm 0.6 - 1.0 / 0.6 - 0.9 cm LV Relative Wall Thickness 0.5 RV Internal Dim ED PLAX 3.2 cm LA Systolic Diameter LX 3.7 cm 3.0 - 4.0 / 2.7 - 3.8 cm LV Diastolic Volume MOD BP 96.6 cm??? 67 - 155 / 56 - 104 cm??? LV Systolic Volume MOD BP 38.8 cm??? 22 - 58 / 19 - 49 cm??? LV Ejection Fraction MOD BP 59.9 % >= 55 % LV Cardiac Index MOD BP 1840.3 cm???/min???m??? LV Diastolic Volume MOD 4C 116.7 cm??? LV Systolic Volume MOD 4C 43.4 cm??? LV Ejection Fraction MOD 4C 62.8 % LV Cardiac Index MOD 4C 2333.1 cm???/min???m??? LV Diastolic Length 4C 7.5 cm LV Systolic Length 4C 6.5 cm LV Diastolic Volume MOD 2C 80.7 cm??? LV Systolic Volume MOD 2C 33.1 cm??? LV Ejection Fraction MOD 2C 59.0 % LV Cardiac Index MOD 2C 1516.1 cm???/min???m??? LV Diastolic Length 2C 7.6 cm LV Systolic Length 2C 7.0 cm LA Volume 40.3 cm??? 18 - 58 / 22 - 52 cm??? LA Volume Index 18.9 cm???/m??? 16 - 28 cm???/m??? M-MODE Aortic Root Diameter MM 3.2 cm DOPPLER AV Peak Velocity 112.0 cm/s AV Peak Gradient 5.0 mmHg MV Area PHT 3.7 cm??? Mitral E Point Velocity 92.0 cm/s Mitral A Point Velocity 63.3 cm/s Mitral E to A Ratio 1.5 MV Deceleration Time 206.7 ms TR Peak Velocity 241.6 cm/s TR Peak Gradient 23.4 mmHg Right Ventricular Systolic Press 28.4 mmHg FINDINGS Left Ventricle Left ventricular ejection fraction is estimated at 55-60 %. Left ventricular cavity size normal. Left ventricular wall thickness normal. Normal left ventricular wall motion. Right Ventricle Normal right ventricular size. Right ventricular systolic pressure within normal limits. Right Atrium Normal right atrial size. No right atrial thrombus or mass seen. Left Atrium Normal left atrial size. No left atrial thrombus or mass present. Mitral Valve Structurally normal mitral valve. Trace to mild mitral regurgitation. Aortic Valve Trileaflet aortic valve. No aortic valve stenosis or regurgitation. Tricuspid Valve Structurally normal tricuspid valve. Mild tricuspid regurgitation. Pulmonic Valve Structurally normal pulmonic valve. No pulmonic regurgitation. Pericardium No pericardial effusion. Aorta Normal size aortic root and proximal ascending aorta. CONCLUSIONS LVEF at 55-60 %. No obvious regional wall motion abnormality Normal right ventricular size. No significant chamber size abnormality No significant valve dysfunction Previewed by: Dr Pop Coffey (Electronically Signed) Final Date: 14 April 2024 17:38
== END | disposition home or self-care (01) ==
LOC: RADECHMAIN 16:07
PROVIDERS: ATTEND Family Medicine
DX: I07.1 Rheumatic tricuspid insufficiency (principal); I34.0 Nonrheumatic mitral (valve) insufficiency; R06.09 Other forms of dyspnea
CPT/HCPCS: 93306